=== PATIENT | female | born 1965 | race Caucasian/White ===

== ENCOUNTER → 2016-08-15 | Outpatient (CLI) | payer BC, OTHER ==
[~2016-08-15] MED LIST: AMLO-110 PO; ESCI1TAB10 PO; MECL1TAB42 PO; SYMIN/8045 INH; SYN75 PO
[2016-08-15 17:52] LABS: BASO % 0.3 %; BASO ABS # 0.03 K/uL (0-0.2); COMPLETE YES; EOS % 3.9 %; HEMATOCRIT 41.8 % (37-47); IG% 0.2 %; LYMPH % 20.6 %; LYMPH ABS # 1.81 K/uL (1.2-3.4); MEAN CELL VOLUME 87.1 fL (80-100); MEAN CORPUSCULAR HEMOGLOBIN 28.8 pg (25-34); MEAN PLATELET VOLUME 9.3 fL (7.4-10.4); MONO % 7.4 %; NEUT % 67.6 %; PLATELET COUNT 564 K/uL (130-400)
[2016-08-15 18:45] LABS: ALT/SGPT 34 U/L (12-78); BLOOD UREA NITROGEN 22 mg/dl (7-18); BUN/CREATININE RATIO 30.7 (10-20); CALCIUM 9.1 mg/dl (8.5-10.1); CARBON DIOXIDE 31 mmol/L (21-32); CHLORIDE 104 mmol/L (98-107); CHOLESTEROL 197 mg/dl (0-200); CREATININE 0.73 mg/dl (0.60-1.20); GLUCOSE 95 mg/dl (70-99); POTASSIUM 4.1 mmol/L (3.5-5.1); SODIUM 141 mmol/L (136-145); TRIGLYCERIDES 302 mg/dl (0-150); VERY LOW DENSITY LIPOPROT CALC 60 mg/dl
[2016-08-15 18:58] LABS: ALB/GLOB RATIO 1.1 (0.9-2); ALKALINE PHOSPHATASE 101 U/L (45-117); AST/SGOT 19 U/L (15-37); CHOLESTEROL/HDL RATIO 3.6; HDL CHOLESTEROL 54 mg/dl; LDL CHOLESTEROL CALCULATED 83 mg/dl
== END | disposition home or self-care (01) ==
LOC: C.LABMFLN 10:25
PROVIDERS: ATTEND Family Medicine
DX: I10 Essential (primary) hypertension (principal); E03.9 Hypothyroidism, unspecified

== ENCOUNTER 2016-11-02 11:44 | Emergency (ER) | payer BC ==
[~2016-11-02] VITALS: Ht 172.7 cm; Wt 122.0 kg
[2016-11-02 11:47] VITALS: TEMP 36.8; Ht 172.7 cm; Wt 122.0 kg
--- NOTE | 2016-11-02 12:18 | EMERGENCY ROOM VISIT NOTE ---
History Report prepared by Andrew: Eugene Poole Under the Supervision of: Dr. Haley Jo D.O. First contact with patient: 11:54 Chief Complaint: DIZZY Stated Complaint: DIZZY Nursing Triage Summary: c/o dizziness for the past 3 wks with blurried vision History of Present Illness The patient is a 51 year old female who presents to the Emergency Room with complaints of intermittent dizziness for the past three weeks. The patient has also been experiencing intermittent lightheadedness and headaches. The headaches are always frontal. The patient sometimes experiences a room-spinning sensation and sometimes feels like she is going to pass out. She is currently feeling slightly dizzy. Her headaches do not always correlate with the dizzy and lightheaded symptoms. She denies chest pain, palpitations, new shortness of breath, nausea, vomiting, changes in bowel habits, urinary symptoms, leg swelling, numbness, or tingling. The patient had similar symptoms in the past and was found to have thyroid disease, however she is now on thyroid medication. The patient is post-menopausal. The patient has a history of asthma and recently had Prednisone for an attack. She has never had problems with Prednisone. She denies history of migraines. The patient has family history of vertigo. She denies any recent travel or changes in exercise / activity. The patient denies recent changes in medication or history of medication reactions. She is on Lexapro for a history of anxiety and panic attacks. Source of History: patient Onset: three weeks ago Position: other (global) Quality: other (dizziness) Timing: intermittent Associated Symptoms: + headache, No chest pain, No SOB, No nausea, No vomiting, No melena, No hematochezia, No diarrhea, No urinary symptoms, No weakness, No numbness Note: + lightheadedness Review of Systems See HPI for pertinent positives & negatives. A total of 10 systems reviewed and were otherwise negative. Past Medical & Surgical Medical Problems: (1) Anxiety (2) Asthma (3) Hypothyroid Family History Vertigo Social History Smoking Status: Former Smoker Marital Status: Housing Status: lives with family Current/Historical Medications Scheduled Amlodipine (Norvasc), 5 MG PO QAM Budesonide/Formoterol Fumarate (Symbicort 80/4.5 Inhaler), 2 PUFFS INH BID Escitalopram Oxalate (Lexapro), 20 MG PO QAM Levothyroxine Sodium (Synthroid), 75 MCG PO QAM Scheduled PRN Meclizine Hcl (Meclizine Hcl), 25 MG PO TID PRN for Dizziness Allergies Coded Allergies: No Known Allergies (Unverified , 11/02/16) Physical Exam Vital Signs Date Time Temp Pulse Resp B/P (MAP) Pulse Ox O2 Delivery O2 Flow Rate FiO2 11/02/16 14:22 68 18 120/96 95 Room Air 11/02/16 13:10 67 18 165/91 96 Room Air 11/02/16 12:11 72 11/02/16 12:01 65 18 186/97 11/02/16 11:47 36.8 79 16 205/127 96 Physical Exam GENERAL: alert, well appearing, well nourished, no distress, non-toxic EYE EXAM: normal conjunctiva. OROPHARYNX: no exudate, no erythema, lips, buccal mucosa, and tongue normal and mucous membranes are moist NECK: supple, no nuchal rigidity, no adenopathy, non-tender LUNGS: Clear to auscultation. Normal chest wall mechanics HEART: no murmurs, S1 normal and S2 normal ABDOMEN: abdomen soft, non-tender, normo-active bowel sounds, no masses, no rebound or guarding. BACK: Back is symmetrical on inspection and there is no deformity, no midline tenderness, no CVA tenderness. SKIN: no rashes and no bruising UPPER EXTREMITIES: upper extremities are grossly normal. LOWER EXTREMITIES: No pitting edema. NEURO EXAM: Normal sensorium, cranial nerves II-XII grossly intact, normal speech, no gross weakness of arms, no gross weakness of legs. Gross sensation intact. Negative HINTS. Medical Decision & Procedures ER Provider Diagnostic Interpretation: Radiology results have been interpreted by the radiologist and reviewed by me. CT OF THE HEAD WITHOUT CONTRAST CLINICAL HISTORY: Headache and dizziness. COMPARISON STUDY: No previous studies for comparison. CT DOSE: 729.78 mGycm TECHNIQUE: Helical axial images of the head were obtained without IV contrast. Automated exposure control was utilized for the study. FINDINGS: No acute intracranial hemorrhage, midline shift or mass effect is present. Ventricular system is normal. Basilar cisterns are patent. There are no extra-axial collections. There is bilateral basal ganglia calcification. There are no findings to suggest acute dural sinus thrombosis or acute territorial infarct. There are no calvarial abnormalities. There is a tiny mucous retention cyst within the right maxillary sinus. IMPRESSION: No acute intracranial findings. Electronically signed by: Martin Bennett M.D. 11/02/2016 12:57 PM Dictated Date/Time: 11/02/2016 12:49 PM Laboratory Results 11/02/16 12:08 Red Blood Count 4.99, Mean Corpuscular Volume 87.6, Mean Corpuscular Hemoglobin 28.3, Mean Corpuscular Hemoglobin Concent 32.3, Mean Platelet Volume 9.3, Neutrophils (%) (Auto) 69.8, Lymphocytes (%) (Auto) 19.9, Monocytes (%) (Auto) 7.6, Eosinophils (%) (Auto) 2.0, Basophils (%) (Auto) 0.5, Neutrophils # (Auto) 5.86, Lymphocytes # (Auto) 1.67, Monocytes # (Auto) 0.64, Eosinophils # (Auto) 0.17, Basophils # (Auto) 0.04 11/02/16 12:08 Test 11/02/16 12:03 11/02/16 12:08 11/02/16 13:05 Bedside Glucose 81 mg/dl (70-90) White Blood Count 8.40 K/uL (4.8-10.8) Red Blood Count 4.99 M/uL (4.2-5.4) Hemoglobin 14.1 g/dL (12.0-16.0) Hematocrit 43.7 % (37-47) Mean Corpuscular Volume 87.6 fL (80-100) Mean Corpuscular Hemoglobin 28.3 pg (25-34) Mean Corpuscular Hemoglobin Concent 32.3 g/dl (32-36) Platelet Count 569 K/uL (130-400) Mean Platelet Volume 9.3 fL (7.4-10.4) Neutrophils (%) (Auto) 69.8 % Lymphocytes (%) (Auto) 19.9 % Monocytes (%) (Auto) 7.6 % Eosinophils (%) (Auto) 2.0 % Basophils (%) (Auto) 0.5 % Neutrophils # (Auto) 5.86 K/uL (1.4-6.5) Lymphocytes # (Auto) 1.67 K/uL (1.2-3.4) Monocytes # (Auto) 0.64 K/uL (0.11-0.59) Eosinophils # (Auto) 0.17 K/uL (0-0.5) Basophils # (Auto) 0.04 K/uL (0-0.2) RDW Standard Deviation 42.6 fL (36.4-46.3) RDW Coefficient of Variation 13.3 % (11.5-14.5) Immature Granulocyte % (Auto) 0.2 % Immature Granulocyte # (Auto) 0.02 K/uL (0.00-0.02) Anion Gap 11.0 mmol/L (3-11) Est Creatinine Clear Calc Drug Dose 126.8 ml/min Estimated GFR () 111.3 Estimated GFR (Non- 96.0 BUN/Creatinine Ratio 27.4 (10-20) Calcium Level 9.0 mg/dl (8.5-10.1) Magnesium Level 2.3 mg/dl (1.8-2.4) Total Bilirubin 1.1 mg/dl (0.2-1) Aspartate Amino Transf (AST/SGOT) 24 U/L (15-37) Alanine Aminotransferase (ALT/SGPT) 31 U/L (12-78) Alkaline Phosphatase 73 U/L (45-117) Troponin I < 0.015 ng/ml (0-0.045) Total Protein 7.2 gm/dl (6.4-8.2) Albumin 3.9 gm/dl (3.4-5.0) Globulin 3.3 gm/dl (2.5-4.0) Albumin/Globulin Ratio 1.2 (0.9-2) Thyroid Stimulating Hormone (TSH) 1.550 uIu/ml (0.300-4.500) Chemistry Specimen Hemolysis Urine Color YELLOW Urine Appearance CLEAR (CLEAR) Urine pH 5.0 (4.5-7.5) Urine Specific [place] 1.015 (1.000-1.030) Urine Protein NEG (NEG) Urine Glucose (UA) NEG (NEG) Urine Ketones 1+ (NEG) Urine Occult Blood NEG (NEG) Urine Nitrite NEG (NEG) Urine Bilirubin NEG (NEG) Urine Urobilinogen NEG (NEG) Urine Leukocyte Esterase NEG (NEG) Laboratory results per my review. Medications Administered Medications (Trade) Dose Ordered Sig/Kervin Route Start Time Stop Time Status Last Admin Dose Admin Meclizine HCl (Antivert Tab) 25 mg NOW STAT PO 11/02/16 12:24 11/02/16 12:26 DC 11/02/16 12:24 25 MG Meclizine HCl (Antivert Tab) 25 mg NOW STAT PO 11/02/16 14:08 11/02/16 14:09 DC 11/02/16 14:21 25 MG ECG Indication: other (dizziness) Rate (beats per minute): 73 Rhythm: sinus rhythm Findings: no acute ischemic change, no ectopy, other (normal axis, normal intervals) ED Course 1207: The patient was evaluated in room C3. A complete history and physical exam was performed. 1224: Antivert 25 mg PO. 1340: The patient is feeling better. I had an extensive bedside discussion about dizziness and follow up with her primary doctor. 1408: Antivert 25 mg PO. Medical Decision Differential diagnosis: Etiologies such as benign positional vertigo, dehydration, hypovolemia, anemia, tumor, infection, hypoglycemia, electrolyte abnormalities, cardiac sources, intracerebral event, toxicologic, neurologic, as well as others were entertained. Blood pressure screening: Patient was found to have an elevated blood pressure and was referred to their primary doctor for recheck and further treatment. Medication Reconciliation: I attest that I have personally reviewed the patient' s current medication list. Patient well-appearing here despite complaints of improvement with meclizine. CT reassuring, and bedside physical exam reassuring. Feel less likely central cause of vertigo. No recent trauma, doubt stroke, doubt occult infection, no dysrhythmias noted on telemetry, doubt cardiac etiology. Discussed with patient possible differential diagnosis, possible peripheral vertigo, discussed close follow-up with family doctor, use of meclizine is not patient, symptoms to watch and return for, she verbalized understanding was agreeable with plan. Doubt bacteremia/sepsis, doubt vascular etiology. Patient noted to be mildly dehydrated, IV fluids were given, patient and related with a steady gait and was tolerating by mouth prior to discharge. Mild hypertension noted, doubt hypertensive urgency/emergency, discussed with patient close follow-up and recheck of blood pressure as an outpatient. Impression Primary Impression: Dizziness Additional Impression: Hypertension Scribe Attestation The scribe's documentation has been prepared under my direction and personally reviewed by me in its entirety. I confirm that the note above accurately reflects all work, treatment, procedures, and medical decision making performed by me. Departure Information Dispostion Home / Self-Care Prescriptions Meclizine Hcl (MECLIZINE HCL) 25 Mg Tab 25 MG PO TID Y for Dizziness, #20 TAB Prov: Haley Jo, DO 11/02/16 Referrals Amy Mariee M.D. (PCP) Forms HOME CARE DOCUMENTATION FORM, IMPORTANT VISIT INFORMATION Patient Instructions My [facility] Additional Instructions You may use the dizzy medication as prescribed. Please continue to eat and drink normally. Please continue other regular medications. Please: Follow up with her family doctor and discuss with them your symptoms over the last several weeks, as well as evaluation here today. Discussed symptoms also recheck your blood pressure is slightly elevated today and needs further evaluation. If you develop recurrent or worsening episodes of dizziness, develop headaches, vomiting, vision changes, chest pain or trouble breathing, numbness or tingling, fevers, or any other new or concerning symptoms, please return the emergency room. Problem Qualifiers Additional Impression: Hypertension Hypertension type: essential hypertension Qualified Codes: I10 - Essential ( primary) hypertension
[2016-11-02] MEDS ORDERED: MECLIZINE HCL 25 MG TAB PO STA ×2 (12:24→14:08)
[2016-11-02 12:45] LABS: BASO % 0.5 %; BASO ABS # 0.04 K/uL (0-0.2); COMPLETE YES; HEMATOCRIT 43.7 % (37-47); IG% 0.2 %; LYMPH % 19.9 %; LYMPH ABS # 1.67 K/uL (1.2-3.4); MEAN CELL VOLUME 87.6 fL (80-100); MEAN CORPUSCULAR HEMOGLOBIN 28.3 pg (25-34); MEAN CORPUSCULAR HGB CONC 32.3 g/dl (32-36); MEAN PLATELET VOLUME 9.3 fL (7.4-10.4); MONO % 7.6 %; NEUT % 69.8 %; PLATELET COUNT 569 K/uL (130-400); RED BLOOD COUNT 4.99 M/uL (4.2-5.4)
--- NOTE | 2016-11-02 12:58 | DIAGNOSTIC IMAGING REPORT ---
CT OF THE HEAD WITHOUT CONTRAST CLINICAL HISTORY: Headache and dizziness. COMPARISON STUDY: No previous studies for comparison. CT DOSE: 729.78 mGycm TECHNIQUE: Helical axial images of the head were obtained without IV contrast. Automated exposure control was utilized for the study. FINDINGS: No acute intracranial hemorrhage, midline shift or mass effect is present. Ventricular system is normal. Basilar cisterns are patent. There are no extra-axial collections. There is bilateral basal ganglia calcification. There are no findings to suggest acute dural sinus thrombosis or acute territorial infarct. There are no calvarial abnormalities. There is a tiny mucous retention cyst within the right maxillary sinus. IMPRESSION: No acute intracranial findings. Electronically signed by: Martin Bennett M.D. 11/02/2016 12:57 PM Dictated Date/Time: 11/02/2016 12:49 PM
[2016-11-02] MEDS ORDERED: AMLO-110 PO (13:00)
[2016-11-02] MEDS ORDERED: SYN75 PO (13:00)
[2016-11-02] MEDS ORDERED: SYMIN/8045 INH (13:00)
[2016-11-02] MEDS ORDERED: ESCI1TAB10 PO (13:00)
[2016-11-02 13:12] LABS: ALB/GLOB RATIO 1.2 (0.9-2); ALT/SGPT 31 U/L (12-78); AST/SGOT 24 U/L (15-37); BLOOD UREA NITROGEN 20 mg/dl (7-18); BUN/CREATININE RATIO 27.4 (10-20); CARBON DIOXIDE 24 mmol/L (21-32); CHLORIDE 107 mmol/L (98-107); CREATININE 0.73 mg/dl (0.60-1.20); GLUCOSE 86 mg/dl (70-99); MAGNESIUM 2.3 mg/dl (1.8-2.4); POTASSIUM 4.2 mmol/L (3.5-5.1); SODIUM 142 mmol/L (136-145)
[2016-11-02 13:18] LABS: ALKALINE PHOSPHATASE 73 U/L (45-117)
[2016-11-02 14:19] LABS: URINE APPEARANCE CLEAR (CLEAR); URINE BILIRUBIN NEG (NEG); URINE COLOR YELLOW; URINE NITRITE NEG (NEG); URINE SPECIFIC GRAVITY 1.015 (1.000-1.030); UROBILINOGEN NEG (NEG); ZZUR CULT IF INDIC CLEAN CATCH NO
[2016-11-02 14:20] LABS: MANUAL MICROSCOPIC REQUIRED? NO; REVIEW REQ? NO
[2016-11-02 14:22] VITALS: BP 120/96; PULSE 68; O2SAT 95
[2016-11-02] MEDS ORDERED: MECL1TAB42 PO (14:39)
== END 2016-11-02 14:43 | disposition home or self-care (01) ==
LOC: C.EDB 11:46 → C.EDC 14:43
DX: R42 Dizziness and giddiness (principal); I10 Essential (primary) hypertension; J45.909 Unspecified asthma, uncomplicated; F41.9 Anxiety disorder, unspecified; E03.9 Hypothyroidism, unspecified; Z87.891 Personal history of nicotine dependence

== ENCOUNTER → 2017-01-10 | Outpatient (CLI) | payer BC ==
[~2017-01-10] MED LIST changes: +OPTIRAY 320 IV PRN
--- NOTE | 2017-01-10 17:02 | DIAGNOSTIC IMAGING REPORT ---
(CHEST FOR PE) ANGIO WITH CT DOSE: 678.14 mGy.cm HISTORY: Chest pain. Dyspnea. TECHNIQUE: Multiaxial CT images of the chest were performed following the intravenous administration of contrast to evaluate the pulmonary arteries. Maximal intensity projection images were also obtained. A dose lowering technique was utilized adhering to the principles of ALARA. COMPARISON STUDY: 03/13/2013 FINDINGS: There is a normal caliber thoracic aorta with no evidence for dissection. There is no evidence for pulmonary embolus. No pleural effusions. No pneumothorax. The liver and spleen are unremarkable. No mediastinal or hilar lymphadenopathy. The central airways are patent. The lungs are clear. IMPRESSION: No evidence for pulmonary embolus. The lungs are clear. The above report was generated using voice recognition software. It may contain grammatical, syntax or spelling errors. Electronically signed by: Anthony Díaz M.D. 01/10/2017 5:01 PM Dictated Date/Time: 01/10/2017 4:57 PM
== END | disposition home or self-care (01) ==
LOC: C.CTS 16:40
PROVIDERS: ATTEND Family Medicine
DX: R07.81 Pleurodynia (principal)

== ENCOUNTER 2017-07-17 15:38 | Observation (INO) | payer BC ==
[~2017-07-17] VITALS: Ht 172.7 cm; Wt 127.4 kg
[~2017-07-17 15:38] MED LIST changes: -MECL1TAB42 PO; -OPTIRAY 320 IV PRN
[2017-07-17] MEDS ORDERED: DILTIAZEM BOLUS / DRIP IV STA (16:01)
[2017-07-17] MEDS ORDERED: DILTIAZEM BOLUS FROM BAG IV ONE (16:15)
[2017-07-17] MEDS ORDERED: DILTIAZEM HCL INJ 125 MG in DEXTROSE 5% 100ML IV PRN (16:15)
--- NOTE | 2017-07-17 16:37 | DIAGNOSTIC IMAGING REPORT ---
CHEST ONE VIEW PORTABLE CLINICAL HISTORY: Evaluate Fever/Sepsis dyspnea COMPARISON STUDY: No previous studies for comparison. FINDINGS: The bones soft tissues and hemidiaphragms are normal. The cardiomediastinal silhouette is normal. The lungs are clear. The pulmonary vasculature is normal. IMPRESSION: Negative chest. The above report was generated using voice recognition software. It may contain grammatical, syntax or spelling errors. Electronically signed by: Anthony Díaz M.D. 07/17/2017 4:36 PM Dictated Date/Time: 07/17/2017 4:36 PM
[2017-07-17] MEDS ORDERED: SODIUM CHLORIDE 0.9% 1000ML 1,000 ML IV STA (16:38)
[2017-07-17 16:40] LABS: BASO % 0.3 %; BASO ABS # 0.04 K/uL (0-0.2); EOS ABS # 0.13 K/uL (0-0.5); HEMATOCRIT 45.2 % (37-47); HEMOGLOBIN 15.4 g/dL (12.0-16.0); IG# 0.05 K/uL (0.00-0.02); LYMPH % 17.2 %; LYMPH ABS # 2.21 K/uL (1.2-3.4); MEAN CELL VOLUME 86.3 fL (80-100); MEAN CORPUSCULAR HEMOGLOBIN 29.4 pg (25-34); MEAN CORPUSCULAR HGB CONC 34.1 g/dl (32-36); MEAN PLATELET VOLUME 9.1 fL (7.4-10.4); MONO % 8.7 %; MONO ABS # 1.11 K/uL (0.11-0.59); NEUT % 72.4 %; NEUT ABS # 9.29 K/uL (1.4-6.5); PLATELET COUNT 640 K/uL (130-400); RED CELL DISTRIBUTION WIDTH CV 12.9 % (11.5-14.5); RED CELL DISTRIBUTION WIDTH SD 40.9 fL (36.4-46.3); WHITE BLOOD COUNT 12.83 K/uL (4.8-10.8)
[2017-07-17] MEDS ORDERED: AMLO10TA2 PO (16:47)
[2017-07-17] MEDS ORDERED: MULT-506 PO (16:47)
[2017-07-17] MEDS ORDERED: BUSP15TA70 PO (16:47)
[2017-07-17 17:19] LABS: ALBUMIN 3.9 gm/dl (3.4-5.0); ALT/SGPT 31 U/L (12-78); AST/SGOT 15 U/L (15-37); BLOOD UREA NITROGEN 19 mg/dl (7-18); CALCIUM 8.9 mg/dl (8.5-10.1); CARBON DIOXIDE 23 mmol/L (21-32); GLUCOSE 100 mg/dl (70-99); POTASSIUM 3.8 mmol/L (3.5-5.1); SODIUM 139 mmol/L (136-145)
[2017-07-17 17:30] LABS: ALKALINE PHOSPHATASE 75 U/L (45-117); CKMB 1.9 ng/ml (0.5-3.6); TOTAL PROTEIN 7.1 gm/dl (6.4-8.2)
--- NOTE | 2017-07-17 17:51 | EMERGENCY ROOM VISIT NOTE ---
History Report prepared by Andrew: Miladis Fontenot Under the Supervision of: Dr. Aren Johnson D.O. First contact with patient: 15:56 Chief Complaint: IRREGULAR HEARTBEAT Stated Complaint: AFIB- PHYSICIAN REF History of Present Illness The patient is a 52 year old female who presents to the Emergency Room with complaints of persistent SOB starting 1 week ago. The patient was sent to the ED from her PCP's office after she was found to be in atrial fibrillation. She does not have a history of atrial fibrillation. She has been feeling SOB, shaky , and dizzy for the past week. She has been easily fatigued. She denies any fever or cough. She has a history of hypothyroidism, anxiety, and hypertension. She does have a family history of atrial fibrillation. Source of History: patient Onset: 1 week ago Position: other (global) Quality: other (SOB) Timing: other (persistent) Associated Symptoms: + fatigue, No fevers, No cough Note: Pt reports shakiness, dizziness. Review of Systems See HPI for pertinent positives & negatives. A total of 10 systems reviewed and were otherwise negative. Past Medical & Surgical Medical Problems: (1) Anxiety (2) Asthma (3) Hypothyroid Family History Vertigo Social History Smoking Status: Former Smoker Marital Status: Housing Status: lives with family Current/Historical Medications Scheduled Amlodipine Besylate (Norvasc), 10 MG PO DAILY Buspirone Hcl (Buspar), 15 MG PO BID Escitalopram Oxalate (Lexapro), 20 MG PO QAM Levothyroxine Sodium (Synthroid), 75 MCG PO QAM Multivitamin (Multivitamin), 1 TAB PO DAILY Scheduled PRN Budesonide/Formoterol Fumarate (Symbicort 80/4.5 Inhaler), 2 PUFFS INH BID PRN for SOB/Wheezing Allergies Coded Allergies: Amoxicillin (Verified Allergy, Severe, Full body rash, 07/17/17) Dicyclomine (Verified Allergy, Unknown, Unknown, 07/17/17) Physical Exam Vital Signs Date Time Temp Pulse Resp B/P (MAP) Pulse Ox O2 Delivery O2 Flow Rate FiO2 07/17/17 17:30 73 16 134/89 98 Room Air 07/17/17 16:56 77 18 140/88 98 07/17/17 16:44 85 07/17/17 16:27 98 Room Air 07/17/17 16:26 99 20 123/94 98 Room Air 07/17/17 16:02 96 Room Air 07/17/17 15:51 36.3 137 20 173/125 97 Room Air Physical Exam CONSTITUTIONAL/VITAL SIGNS: Reviewed / noted above. GENERAL: Non-toxic in appearance. INTEGUMENTARY: Warm, dry, and [place]. HEAD: Normocephalic. EYES: without scleral icterus or trauma. ENT/OROPHARYNX: clear and moist. LYMPHADENOPATHY/NECK: Is supple without lymphadenopathy or meningismus. RESPIRATORY: Lungs clear and equal. CARDIOVASCULAR: Rapid and irregular heart rate. GI/ABDOMEN: Soft and nontender. No organomegaly or pulsatile mass. No rebound or guarding. Normal bowel sounds. EXTREMITIES: Warm and well perfused. BACK: No CVA tenderness. NEUROLOGICAL: Intact without focal deficits. PSYCHIATRIC: normal affect. MUSCULOSKELETAL: Normally developed with good muscle tone. Medical Decision & Procedures ER Provider Diagnostic Interpretation: X ray results and stated below per my interpretation and radiology interpretation. CHEST ONE VIEW PORTABLE CLINICAL HISTORY: Evaluate Fever/Sepsis dyspnea COMPARISON STUDY: No previous studies for comparison. FINDINGS: The bones soft tissues and hemidiaphragms are normal. The cardiomediastinal silhouette is normal. The lungs are clear. The pulmonary vasculature is normal. IMPRESSION: Negative chest. The above report was generated using voice recognition software. It may contain grammatical, syntax or spelling errors. Electronically signed by: Anthony Díaz M.D. 07/17/2017 4:36 PM Dictated Date/Time: 07/17/2017 4:36 PM Laboratory Results 07/17/17 16:08 Red Blood Count 5.24, Mean Corpuscular Volume 86.3, Mean Corpuscular Hemoglobin 29.4, Mean Corpuscular Hemoglobin Concent 34.1, Mean Platelet Volume 9.1, Neutrophils (%) (Auto) 72.4, Lymphocytes (%) (Auto) 17.2, Monocytes (%) (Auto) 8.7, Eosinophils (%) (Auto) 1.0, Basophils (%) (Auto) 0.3, Neutrophils # (Auto) 9.29, Lymphocytes # (Auto) 2.21, Monocytes # (Auto) 1.11, Eosinophils # (Auto) 0.13, Basophils # (Auto) 0.04 07/17/17 16:08 Test 07/17/17 16:08 White Blood Count 12.83 K/uL (4.8-10.8) Red Blood Count 5.24 M/uL (4.2-5.4) Hemoglobin 15.4 g/dL (12.0-16.0) Hematocrit 45.2 % (37-47) Mean Corpuscular Volume 86.3 fL (80-100) Mean Corpuscular Hemoglobin 29.4 pg (25-34) Mean Corpuscular Hemoglobin Concent 34.1 g/dl (32-36) Platelet Count 640 K/uL (130-400) Mean Platelet Volume 9.1 fL (7.4-10.4) Neutrophils (%) (Auto) 72.4 % Lymphocytes (%) (Auto) 17.2 % Monocytes (%) (Auto) 8.7 % Eosinophils (%) (Auto) 1.0 % Basophils (%) (Auto) 0.3 % Neutrophils # (Auto) 9.29 K/uL (1.4-6.5) Lymphocytes # (Auto) 2.21 K/uL (1.2-3.4) Monocytes # (Auto) 1.11 K/uL (0.11-0.59) Eosinophils # (Auto) 0.13 K/uL (0-0.5) Basophils # (Auto) 0.04 K/uL (0-0.2) RDW Standard Deviation 40.9 fL (36.4-46.3) RDW Coefficient of Variation 12.9 % (11.5-14.5) Immature Granulocyte % (Auto) 0.4 % Immature Granulocyte # (Auto) 0.05 K/uL (0.00-0.02) Prothrombin Time 10.6 SECONDS (9.0-12.0) Prothromb Time International Ratio 1.0 (0.9-1.1) Activated Partial Thromboplast Time 24.0 SECONDS (21.0-31.0) Partial Thromboplastin Ratio 0.9 Anion Gap 10.0 mmol/L (3-11) Est Creatinine Clear Calc Drug Dose 116.8 ml/min Estimated GFR () 98.9 Estimated GFR (Non- 85.4 BUN/Creatinine Ratio 23.5 (10-20) Calcium Level 8.9 mg/dl (8.5-10.1) Total Bilirubin 1.1 mg/dl (0.2-1) Direct Bilirubin 0.2 mg/dl (0-0.2) Aspartate Amino Transf (AST/SGOT) 15 U/L (15-37) Alanine Aminotransferase (ALT/SGPT) 31 U/L (12-78) Alkaline Phosphatase 75 U/L (45-117) Total Creatine Kinase 71 U/L (26-192) Creatine Kinase MB 1.9 ng/ml (0.5-3.6) Creatine Kinase MB Ratio 2.7 (0-3.0) Troponin I < 0.015 ng/ml (0-0.045) Total Protein 7.1 gm/dl (6.4-8.2) Albumin 3.9 gm/dl (3.4-5.0) Thyroid Stimulating Hormone (TSH) 2.480 uIu/ml (0.300-4.500) Laboratory results as stated above per my review. Medications Administered Medications (Trade) Dose Ordered Sig/Kervin Route Start Time Stop Time Status Last Admin Dose Admin Diltiazem HCl (Cardizem Bolus From Bag) 30 mg ONE ONCE IV 07/17/17 16:15 07/17/17 16:16 DC 07/17/17 16:19 30 MG Diltiazem HCl 125 mg/Dextrose 125 ml @ 0 mls/hr Q0M PRN IV 07/17/17 16:15 08/16/17 16:14 07/17/17 16:20 10 MLS/HR Sodium Chloride 1,000 ml @ 999 mls/hr Q1H1M STAT IV 07/17/17 16:38 07/17/17 17:38 DC 07/17/17 16:10 999 MLS/HR ECG Per My Interpretation Indication: SOB/dyspnea Rate (beats per minute): 147 Rhythm: atrial fibrillation Findings: other (no ST elevation, no ST depression) ED Course 1557: Previous medical records were reviewed. The patient was evaluated in room C11B. A complete history and physical examination was performed. 1615: Diltiazem HCl 125 mg/Dextrose IV, Diltiazem HCl 30 mg IV. 1638: NSS 1000 ml @ 999 mls/hr IV. 1642: Heparin Sodium/Dextrose IV. 1720: Repeat EKG per my interpretation shows NSR, rate 73, no ST elevation, no ST depression. 1733: I discussed the patient's case with Dr. Guerrero Powell [facility] hospitalist. He will evaluate the patient for further management. Medical Decision the differential was considered includes acute myocardial infarction, acute coronary syndrome, myocarditis, pericarditis, pericardial effusions /tamponade, esophageal perforation, thoracic aortic dissection, pulmonary embolism, pneumonia, pneumothorax, pancreatitis, shingles, acute cholecystitis, perforated abdominal viscus. This is a 52-year-old female who presents to the ED with a chief complaint of irregular heartbeat. The patient was sent from the PCPs office with atrial fibrillation. The patient states that she has been having symptoms for the past 6 days. The patient states that she has been short of breath and feeling tired that worsened with exertion. She has a history of hypertension and thyroid. The patient reported some dizziness as well. Her vital signs here revealed some hypertension as well as a tachycardia. Initial EKG revealed A. fib with RVR at a rate of 137. CBC is unremarkable, troponin was negative, chest x-ray did not show acute disease. The patient was started on Cardizem 30 mg IV followed by drip at 10 mg/h. After a period of time in the emergency department, she spontaneously converted into a normal sinus rhythm. She was started on IV heparin drip. I spoke with the hospitalist, who will see the patient for further inpatient evaluation and care. Medication Reconcilliation Current Medication List: was personally reviewed by me Blood Pressure Screening Patient's blood pressure: Elevated blood pressure Referred to hospitalist. Consults Time Called: 1733 Consulting Physician: Dr. Guerrero Powell [facility] Returned Call: [phone] I discussed the patient's case with him. He will evaluate the patient for further management. Impression Primary Impression: Atrial fibrillation with RVR Critical Care I have personally spent 30 minutes of critical care time in the direct management of this patient. This includes bedside care, interpretation of diagnostic studies, and testing, discussion with consultants, patient, and family members, and other required patient management activities. This 30 minutes is in excess of all separately billable procedures. Scribe Attestation The scribe's documentation has been prepared under my direction and personally reviewed by me in its entirety. I confirm that the note above accurately reflects all work, treatment, procedures, and medical decision making performed by me. Departure Information Dispostion Being Evaluated By Hospitalist Referrals Kolonich, Amy, M.D. (PCP) Patient Instructions My [facility]
[2017-07-17] MEDS ORDERED: HEPARIN SOD (PORCINE) 1000 UNIT/ML 10 ML VIAL ONE (18:40)
[2017-07-17] MEDS ORDERED: HEPARIN SOD 5000 UNIT/0.5 ML CARP ONE (18:41)
[2017-07-17] MEDS ORDERED: HEPARIN IV BOLUS 7,000 UNIT in SYRINGE 0 ML IV ONE (18:45)
[2017-07-17] MEDS: HEPARIN 25,000 UNIT/500ML D5W 500 ML IV PRN ×2 (18:50→23:14)
[2017-07-17] MEDS ORDERED: LORA0.5T12 PO (18:55)
[2017-07-17] MEDS ORDERED: ACETAMINOPHEN 325 MG TAB PO PRN (19:00)
[2017-07-17] MEDS ORDERED: ALUMINUM/MAGNESIUM/SIMETH (MAALOX MAX) 30 ML UDC PO PRN (19:00)
[2017-07-17] MEDS ORDERED: ONDANSETRON INJ 2 MG/ML 2 ML VIAL IV PRN (19:00)
[2017-07-17] MEDS ORDERED: LORAZEPAM 0.5 MG TAB PO PRN (19:00)
[2017-07-17] MEDS ORDERED: MAGNESIUM HYDROXIDE SUSP 30 ML UDC PO PRN (19:00)
[2017-07-17] MEDS ORDERED: POLYETHYLENE (MIRALAX) 17 GM PACK PO PRN (19:00)
--- NOTE | 2017-07-17 19:19 | History and Physical ---
History & Physical Date & Time of Service: Jul 17, 2017 at 19:04 Chief Complaint: Afib- Physician Ref Primary Care Physician: Amy Mariee M.D. History of Present Illness Source: patient, spouse, clinic records, hospital records This is a 52 y/o female with a history of HTN, hypothyroidism, anxiety/ depression, mild intermittent asthma, and BPPV who presented to the ED on 07/17 with fatigue, lightheadedness and shortness of breath x 1 week. The patient states she felt her heart racing about 1 week ago. She does have a history of anxiety and notes also feeling anxious that day, so she believed this may have been related to an anxiety attack. Over the weekend, she felt much worse with increased fatigue, some shortness of breath and lightheadedness. She could tell that something was not right, so she went to her PCP. She was found to be in new onset of a-fib with RVR and sent to the ED for evaluation. The patient received diltiazem 30 mg bolus and drip and converted back to NSR. She reports now feeling much better. The patient denies fevers, chills, sweats, chest pain , claudication, cough, wheezing, nausea, vomiting, abdominal pain, dysuria, hematuria, urinary retention, paralysis, focal motor weakness, numbness and tingling. Past Medical/Surgical History Medical Problems: (1) Anxiety Status: Chronic (2) Asthma Status: Chronic (3) Hypothyroid Status: Chronic HTN Depression BPPV Family History Asthma Hypertension Prostate cancer Vertigo Social History Smoking Status: Former Smoker Smokeless Tobacco Use: No Alcohol Use: socially Drug Use: none Marital Status: Housing status: lives with significant other Allergies Coded Allergies: Amoxicillin (Verified Allergy, Severe, Full body rash, 07/17/17) Dicyclomine (Verified Allergy, Unknown, Unknown, 07/17/17) Home Medications Scheduled Amlodipine Besylate (Norvasc), 10 MG PO DAILY Buspirone Hcl (Buspar), 15 MG PO BID Escitalopram Oxalate (Lexapro), 20 MG PO QAM Levothyroxine Sodium (Synthroid), 75 MCG PO QAM Multivitamin (Multivitamin), 1 TAB PO DAILY Scheduled PRN Budesonide/Formoterol Fumarate (Symbicort 80/4.5 Inhaler), 2 PUFFS INH BID PRN for SOB/Wheezing Lorazepam (Lorazepam), 1 TAB PO BID PRN for Anxiety Review of Systems Constitutional: +Fatigue, lightheaded. No fever, No chills, No sweats Eyes: No worsening of vision, No eye pain, No diplopia ENT: No hearing loss, No nasal symptoms, No trouble swallowing Respiratory: +Intermittent SOB. No cough, No wheezing Cardiovascular: +Palpitations. No chest pain, No claudication Abdomen: No pain, No nausea, No vomiting Musculoskeletal: No joint pain, No muscle pain, No swelling Genitourinary - Female: No dysuria, No urinary retention, No hematuria Neurologic: No paralysis, No weakness, No numbness/tingling Integumentary: No rash, No itch, No color change Physical Exam Vital Signs Date Time Temp Pulse Resp B/P (MAP) Pulse Ox O2 Delivery O2 Flow Rate FiO2 07/17/17 17:30 73 16 134/89 98 Room Air 07/17/17 16:56 77 18 140/88 98 07/17/17 16:44 85 07/17/17 16:27 98 Room Air 07/17/17 16:26 99 20 123/94 98 Room Air 07/17/17 16:02 96 Room Air 07/17/17 15:51 36.3 137 20 173/125 97 Room Air General appearance: +Morbidly obese. Well-developed, well-nourished, no apparent distress Head: Normocephalic, atraumatic Eyes: Normal inspection, PERRL, EOMI ENT: Normal ENT inspection, hearing grossly normal, pharynx normal Neck: Supple, no JVD, trachea midline Respiratory/Chest: Lungs clear to auscultation, normal breath sounds, no respiratory distress Cardiovascular: Regular rate & rhythm, no gallop, no murmur Abdomen/GI: Normal bowel sounds, non-tender, soft Extremities/Musculoskeletal: Normal inspection, no calf tenderness, no pedal edema Neurological/Psych: Alert, normal mood/affect, oriented x 3 Skin: Normal color, warm/dry, no rash Diagnostics Laboratory Results Results Past 24 Hours Test 07/17/17 16:08 Range/Units White Blood Count 12.83 4.8-10.8 K/uL Red Blood Count 5.24 4.2-5.4 M/uL Hemoglobin 15.4 12.0-16.0 g/dL Hematocrit 45.2 37-47 % Mean Corpuscular Volume 86.3 80-100 fL Mean Corpuscular Hemoglobin 29.4 25-34 pg Mean Corpuscular Hemoglobin Concent 34.1 32-36 g/dl Platelet Count 640 130-400 K/uL Mean Platelet Volume 9.1 7.4-10.4 fL Neutrophils (%) (Auto) 72.4 % Lymphocytes (%) (Auto) 17.2 % Monocytes (%) (Auto) 8.7 % Eosinophils (%) (Auto) 1.0 % Basophils (%) (Auto) 0.3 % Neutrophils # (Auto) 9.29 1.4-6.5 K/uL Lymphocytes # (Auto) 2.21 1.2-3.4 K/uL Monocytes # (Auto) 1.11 0.11-0.59 K/uL Eosinophils # (Auto) 0.13 0-0.5 K/uL Basophils # (Auto) 0.04 0-0.2 K/uL RDW Standard Deviation 40.9 36.4-46.3 fL RDW Coefficient of Variation 12.9 11.5-14.5 % Immature Granulocyte % (Auto) 0.4 % Immature Granulocyte # (Auto) 0.05 0.00-0.02 K/uL Prothrombin Time 10.6 9.0-12.0 SECONDS Prothromb Time International Ratio 1.0 0.9-1.1 Activated Partial Thromboplast Time 24.0 21.0-31.0 SECONDS Partial Thromboplastin Ratio 0.9 Sodium Level 139 136-145 mmol/L Potassium Level 3.8 3.5-5.1 mmol/L Chloride Level 106 98-107 mmol/L Carbon Dioxide Level 23 21-32 mmol/L Anion Gap 10.0 3-11 mmol/L Blood Urea Nitrogen 19 7-18 mg/dl Creatinine 0.80 0.60-1.20 mg/dl Est Creatinine Clear Calc Drug Dose 116.8 ml/min Estimated GFR () 98.9 Estimated GFR (Non- 85.4 BUN/Creatinine Ratio 23.5 10-20 Random Glucose 100 70-99 mg/dl Calcium Level 8.9 8.5-10.1 mg/dl Total Bilirubin 1.1 0.2-1 mg/dl Direct Bilirubin 0.2 0-0.2 mg/dl Aspartate Amino Transf (AST/SGOT) 15 15-37 U/L Alanine Aminotransferase (ALT/SGPT) 31 12-78 U/L Alkaline Phosphatase 75 45-117 U/L Total Creatine Kinase 71 26-192 U/L Creatine Kinase MB 1.9 0.5-3.6 ng/ml Creatine Kinase MB Ratio 2.7 0-3.0 Troponin I < 0.015 0-0.045 ng/ml Total Protein 7.1 6.4-8.2 gm/dl Albumin 3.9 3.4-5.0 gm/dl Thyroid Stimulating Hormone (TSH) 2.480 0.300-4.500 uIu/ml Diagnostic Radiology Reviewed the following studies and agree with interpretation as follows: CHEST ONE VIEW PORTABLE CLINICAL HISTORY: Evaluate Fever/Sepsis dyspnea COMPARISON STUDY: No previous studies for comparison. FINDINGS: The bones soft tissues and hemidiaphragms are normal. The cardiomediastinal silhouette is normal. The lungs are clear. The pulmonary vasculature is normal. IMPRESSION: Negative chest. EKG Reviewed EKG and agree with interpretation as follows: Initial EK bpm, atrial fibrillation with RVR 2nd EK bpm, NSR Impression Assessment and Plan 52 y/o female with a history of HTN, hypothyroidism, anxiety/depression, mild intermittent asthma, and BPPV who presented to the ED on 07/17 with fatigue, lightheadedness and shortness of breath x 1 week. HR 137 on arrival, now in mid 70s. CXR no acute disease. EKG initially showing a-fib with RVR, second EKG with NSR. Pt had been given diltiazem 30 mg bolus, then placed on diltiazem drip and a heparin drip. She converted back to NSR and is now feeling much better. WBC 12.83. Troponin negative. TSH WNL. New onset a-fib with RVR--currently in NSR -Admit to telemetry for observation -Consult cardiology, appreciate recs -Continue heparin drip for now. [id number] score of 2, will need anticoagulation. Will leave to day team to decide which agent/see what is affordable -Check echocardiogram for thrombus -Trend cardiac enzymes q8h x 3. First set negative -Check magnesium. Potassium 3.8 -EKG q am and prn chest pain Leukocytosis--put on prednisone taper as outpatient last week for recent URI HTN--stable -Continue Norvasc 10 mg PO qd Hypothyroidism -TSH WNL -Continue Synthroid 75 mcg PO qd Anxiety/depression -Continue Lexapro 20 mg PO qd, BuSpar 15 mg PO BID, and Ativan 0.5 mg PO BID prn anxiety Mild intermittent asthma--stable, no exacerbation -Per pt, Symbicort only prn SOB/wheezing DVT prophylaxis -Heparin drip -CHINTAN morris and SCDs Code Status -Level I, FULL RESUSCITATION STATUS I personally interviewed and examined the patient. I agree with history of present illness and physical exam mentioned above, I also performed my own history taking and examination. Past medical history and review of system has been obtained by myself I reviewed all pertinent labs and studies Reviewed current medications I discussed and formulated of the assessment and plan mentioned above. Please refer to the Summary mentioned below. 52 years old female with past medical history of anxiety, hypothyroidism and hypertension presented to the ED with new onset A. fib with RVR. Patient converted to sinus rhythm in ED. Explained to patient risk and benefits of anticoagulation, she is in favor of starting anticoagulation. On the footnote patient is morbidly obese, discussed with patient having sleep study as an outpatient. Patient will be admitted for 2D echo General Appearance: not in acute distress Eyes: normal Sclerae, extraocular muscle intact ENT: hearing grossly normal Neck: supple Respiratory/Chest: normal air entry bilateral ,no respiratory distress, no accessory muscle use Cardiovascular: regular rate, rhythm, no murmur Abdomen: non tender, soft, no masses Extremities: no edema Neurologic/Psychiatric: Awake alert oriented times place and person moves all extremities sensation intact cranial nerves II-12 appear to be intact Skin: normal color, warm/dry, no rash Jacklyn Powell MD, [facility] Level of Care Telemetry Resuscitation Status FULL RESUSCITATION VTE Prophylaxis VTE Risk Assessment Done? Y/N: Yes Risk Level: Moderate Given or contraindicated: Other Anticoagulation (heparin drip), T.E.D. Stockings, SCD's
[2017-07-17 20:03] VITALS: BP_SYST 129; BP_SYST 157; BP_DIAS 107; BP_DIAS 90; PULSE 103; TEMP 36.9; O2SAT 96; Ht 172.7 cm; Wt 127.4 kg
[2017-07-17] MEDS ORDERED: BusPIRone 15 MG TAB PO SCH (21:00)
[2017-07-17] MEDS ORDERED: IV FLUIDS COMPLETED PRN (21:30)
[2017-07-17 22:49] LABS: CHOLESTEROL 136 mg/dl (0-200); LDL CHOLESTEROL CALCULATED 70 mg/dl
[2017-07-18 00:26] VITALS: BP 114/80; PULSE 78; TEMP 36.4; O2SAT 95
[2017-07-18 01:40] LABS: CKMB 1.4 ng/ml (0.5-3.6)
[2017-07-18 01:44] LABS: PTT PATIENT 91.2 SECONDS (21.0-31.0)
[2017-07-18] MEDS: HEPARIN 25,000 UNIT/500ML D5W 500 ML IV PRN (02:16)
[2017-07-18 04:29] VITALS: BP 137/84; PULSE 74; TEMP 36.5; O2SAT 96
[2017-07-18] MEDS ORDERED: LEVOTHYROXINE 75 MCG TAB PO SCH (06:00)
[2017-07-18] MEDS ORDERED: PERFLUTREN LIPID MICROSPHERE (DEFINITY) IV ONE (07:13)
[2017-07-18 08:00] VITALS: O2SAT 96
[2017-07-18 08:17] VITALS: BP 118/79; PULSE 76; TEMP 36.8; O2SAT 97
[2017-07-18 08:39] LABS: HEMATOCRIT 39.5 % (37-47); HEMOGLOBIN 13.3 g/dL (12.0-16.0); MEAN CORPUSCULAR HEMOGLOBIN 29.3 pg (25-34); MEAN CORPUSCULAR HGB CONC 33.7 g/dl (32-36); MEAN PLATELET VOLUME 8.8 fL (7.4-10.4); PLATELET COUNT 484 K/uL (130-400); RED CELL DISTRIBUTION WIDTH CV 13.1 % (11.5-14.5); RED CELL DISTRIBUTION WIDTH SD 41.9 fL (36.4-46.3); WHITE BLOOD COUNT 7.45 K/uL (4.8-10.8)
[2017-07-18 08:56] LABS: PTT PATIENT 48.8 SECONDS (21.0-31.0)
[2017-07-18] MEDS ORDERED: AMLODIPINE BESYLATE 5 MG TAB PO SCH (09:00)
[2017-07-18] MEDS ORDERED: ESCITALOPRAM OXALATE 20 MG TAB PO SCH (09:00)
[2017-07-18] MEDS ORDERED: MULTIVITAMIN TAB PO SCH (09:00)
[2017-07-18] MEDS ORDERED: BusPIRone 15 MG TAB PO SCH (09:00)
[2017-07-18 09:14] LABS: BLOOD UREA NITROGEN 15 mg/dl (7-18); CALCIUM 8.5 mg/dl (8.5-10.1); CARBON DIOXIDE 24 mmol/L (21-32); CREATININE 0.71 mg/dl (0.60-1.20); GLUCOSE 116 mg/dl (70-99); POTASSIUM 3.8 mmol/L (3.5-5.1); SODIUM 141 mmol/L (136-145)
[2017-07-18 09:18] LABS: CKMB 1.6 ng/ml (0.5-3.6)
[2017-07-18 09:26] LABS: HEMOGLOBIN A1C 5.2 % (4.5-5.6)
--- NOTE | 2017-07-18 09:46 | ECHOCARDIOGRAM REPORT ---
*NOTICE TO RECEIVING CONSTITUTION PARTY AGENCY This information is strictly Confidential and protected under [place] law. [place] law prohibits you from making any further disclosure of this information unless further disclosure is expressly permitted by the written consent of the person to whom it pertains or is authorized by law. A general authorization for the release of medical or other information is not sufficient for this purpose. Hospital accepts no responsibility if the information is made available to any other person, INCLUDING THE PATIENT. Interpretation Summary * Name: LISA REID Study Date: 07/18/2017 06:51 AM BP: 137/84 mmHg * Patient Location: C.2T\S\S242\S\1 HR: 74 * : 1965 (M/d/yyyy) Gender: Female Height: 68 in * Age: 52 yrs Ethnicity: CA Weight: 279 lb * Ordering Physician: Maritza Abdul * Referring Physician: Amy Mariee * Performed By: Selam Arreguin RDCS * * Reason For Study: A-fib * BSA: 2.4 m2 * -- Conclusions -- * Left ventricular systolic function is normal. * Normal diastolic function Procedure Details * A complete two-dimensional transthoracic echocardiogram was performed (2D, M-mode, Doppler and color flow Doppler). * A contrast injection of Definity was performed to improve assessment of LV function. * Contrast was injected into an intravenous site in the left arm. * One vial of Definity ultrasound contrast was diluted in normal saline to a total volume of 10 ml. A total of '2' ml of solution was administered during imaging. * Lot # [id number] of Definity utilized for procedure. * Expiration date jun 21. * The attending nurse who injected the contrast agent was Aimee Wray RN. Left Ventricle * The left ventricle is normal in size. * There is normal left ventricular wall thickness. * Ejection Fraction = 55-60%. * Left ventricular systolic function is normal. * Normal diastolic function * The left ventricular wall motion is normal. Right Ventricle * The right ventricle is normal in size and function. * The right ventricular systolic function is normal as assessed by tricuspid annular plane systolic excursion (TAPSE) (normal >1.5 cm). Atria * The left atrial size is normal. * Right atrial size is normal. Mitral Valve * The mitral valve is grossly normal. * Significant mitral regurgitation is absent. Tricuspid Valve * The tricuspid valve is not well visualized, but is grossly normal. * Significant tricuspid regurgitation is absent. Aortic Valve * The aortic valve is not well visualized. * No hemodynamically significant valvular aortic stenosis. * There is no significant aortic regurgitation. Great Vessels * The aortic root is normal size. Pericardium/Pleural * There is no pericardial effusion. Great Vessels * Normal inferior vena cava diameter and respiratory variation suggests normal central venous pressure. MMode 2D Measurements and Calculations IVSd 0.83 cm LVIDd 4.6 cm LVIDs 3.2 cm LVPWd 1.0 cm IVS/LVPW 0.82 FS 31.0 % EDV(Teich) 96.9 ml ESV(Teich) 40.0 ml EF(Teich) 58.7 % EDV(cubed) 96.8 ml ESV(cubed) 31.9 ml EF(cubed) 67.1 % LV mass(C)d 141.4 grams LV mass(C)dI 60.0 grams/m\S\2 SV(Teich) 56.9 ml SI(Teich) 24.2 ml/m\S\2 SV(cubed) 64.9 ml SI(cubed) 27.6 ml/m\S\2 Ao root diam 3.0 cm Ao root area 7.2 cm\S\2 ACS 2.0 cm LA dimension 3.4 cm asc Aorta Diam 2.8 cm LA/Ao 1.1 LVOT diam 1.9 cm LVOT area 2.8 cm\S\2 LVAd ap4 32.7 cm\S\2 LVLd ap4 8.5 cm EDV(MOD-sp4) 102.6 ml EDV(sp4-el) 106.7 ml LVAs ap4 20.0 cm\S\2 LVLs ap4 7.2 cm ESV(MOD-sp4) 46.1 ml ESV(sp4-el) 47.3 ml EF(MOD-sp4) 55.1 % EF(sp4-el) 55.7 % LVAd ap2 34.7 cm\S\2 LVLd ap2 7.6 cm EDV(MOD-sp2) 123.6 ml EDV(sp2-el) 134.1 ml LVAs ap2 21.0 cm\S\2 LVLs ap2 6.6 cm ESV(MOD-sp2) 54.5 ml ESV(sp2-el) 57.0 ml EF(MOD-sp2) 55.9 % EF(sp2-el) 57.5 % LVLd %diff -11.76 % EDV(MOD-bp) 110.0 ml LVLs %diff -100 % ESV(MOD-bp) 50.8 ml EF(MOD-bp) 53.8 % SV(MOD-sp4) 56.5 ml SI(MOD-sp4) 24.0 ml/m\S\2 SV(MOD-sp2) 69.1 ml SI(MOD-sp2) 29.4 ml/m\S\2 SV(MOD-bp) 59.1 ml SI(MOD-bp) 25.1 ml/m\S\2 SV(sp4-el) 59.4 ml SI(sp4-el) 25.2 ml/m\S\2 SV(sp2-el) 77.1 ml SI(sp2-el) 32.7 ml/m\S\2 Doppler Measurements and Calculations MV E max art 92.6 cm/sec MV A max art 67.9 cm/sec MV E/A 1.4 MV dec time 0.24 sec Ao V2 max 135.7 cm/sec Ao max PG 7.4 mmHg Ao max PG (full) 3.0 mmHg SRINIVASA(V,A) 2.2 cm\S\2 SRINIVASA(V,D) 2.2 cm\S\2 LV V1 max PG 4.4 mmHg LV V1 max 104.3 cm/sec PA V2 max 92.3 cm/sec PA max PG 3.4 mmHg PA acc slope 325.1 cm/sec\S\2 PA acc time 0.18 sec PA pr(Accel) -0.22 mmHg
[2017-07-18] MEDS ORDERED: TPRSR50 PO (10:33)
--- NOTE | 2017-07-18 10:34 | Discharge Instructions ---
Discharge Instructions Date of Service Jul 18, 2017. Admission Reason for Admission: Atrial Fibrillation With Rvr Discharge Discharge Diagnosis / Problem: Atrial Fibrillation with Rapid Ventricular Rates Discharge Goals Goal(s): Decrease discomfort, Improve function, Increase independence Activity Recommendations Activity Limitations: resume your previous activity . Instructions / Follow-Up Instructions / Follow-Up Atrial Fibrillation: - This is when the top of your heart (atria) quiver or shake however the bottom of your heart (ventricles) continue to pump blood to the rest of your body. The main thing is to keep your heart rate under control when you go into this rhythm. At this time you have converted out of this rhythm and have a normal sinus rhythm. - This could have come on due to your recent infection. You electrolytes are within normal limits and your thyroid testing was normal. You echocardiogram did not show heart wall motion changes or signs of heart failure. - You were started on Toprol. This is a blood pressure medication but also helps control heart rate and also allows your heart to not have to work as hard to pump blood. -- Would recommend to stop your Amlodipine and just take the Toprol XL. - You were also started on Xarelto. This is a blood thinner to help prevent strokes in people with atrial fibrillation. -- You will take this just once a day -- While on a blood thinner you may bruise easily. If you have bleeding, apply firm pressure to the site for at least 5 minutes. If bleeding does not stop please seek help. Follow-Up: Dr. Mariee on Jul 25 at 10:00 am [facility] [place] Cardiology w/ Marium Armenta PA-C on SaturdayJul 30 at 3:00 pm Current Hospital Diet Patient's current hospital diet: AHA Diet (Heart Healthy) Discharge Diet Recommended Diet: AHA Diet (Heart Healthy) Pending Studies Studies pending at discharge: no Laboratory Results Hemoglobin A1c Test 07/18/17 08:20 Range/Units Estimated Average Glucose 103 mg/dl Hemoglobin A1c 5.2 4.5-5.6 % Lipid Panel Test 07/17/17 22:07 Range/Units Triglycerides Level 123 0-150 mg/dl Cholesterol Level 136 0-200 mg/dl HDL Cholesterol 41 mg/dl Cholesterol/HDL Ratio 3.3 LDL Cholesterol, Calculated 70 mg/dl Medical Emergencies . Who to Call and When: Medical Emergencies: If at any time you feel your situation is an emergency, please call 911 immediately. . Non-Emergent Contact Non-Emergency issues call your: Primary Care Provider Call Non-Emergent contact if: you have a fever, your pain is concerning you, you have any medication questions . . "Provider Documentation" section prepared by Mi Poon. . VTE Core Measure Inpt VTE Proph given/why not?: Other Anticoagulation (heparin drip), T.E.D. Stockings, SCD's
[2017-07-18 12:00] VITALS: BP 122/82; PULSE 72; TEMP 36.5; O2SAT 96; O2SAT 97
[2017-07-18] MEDS ORDERED: RIVAROXABAN 20 MG TAB PO ONE (12:57)
[2017-07-18] MEDS ORDERED: RIVA1TAB4 PO (12:59)
[2017-07-18 13:45] VITALS: BP 122/82; PULSE 72; TEMP 36.5; O2SAT 97
--- NOTE | 2017-07-18 16:48 | Discharge Summary ---
Discharge Summary Date of Service Jul 18, 2017. Discharge Summary Admission Date: Jul 17, 2017 at 19:04 Discharge Date: Jul 18, 2017 Discharge Disposition: Home Principal Diagnosis: New Onset Atrial Fibrillation with RVR Problems/Secondary Diagnoses: 1. HTN 2. Hypothyroidism 3. Anxiety/Depression 4. Mild Intermittent Asthma 5. BPPV Procedures: CHEST ONE VIEW PORTABLE FINDINGS: The bones soft tissues and hemidiaphragms are normal. The cardiomediastinal silhouette is normal. The lungs are clear. The pulmonary vasculature is normal. IMPRESSION: Negative chest. ECHOCARDIOGRAM - Left ventricular systolic function is normal. - Normal diastolic function Consultations: 1. Cardiology Medication Reconciliation New Medications: Rivaroxaban (Xarelto) 20 Mg Tab 20 MG PO DAILY for 30 Days, #30 TABS Metoprolol Succinate (Metoprolol Succinate ER) 50 Mg Tabcr 50 MG PO QAM for 30 Days, #30 TABS Continued Medications: Budesonide/Formoterol Fumarate (Symbicort 80/4.5 Inhaler) Unknown Strength Aero 2 PUFFS INH BID PRN for SOB/Wheezing, INHALER RINSE MOUTH AFTER USE Buspirone Hcl (Buspar) 15 Mg Tab 15 MG PO BID, TAB Escitalopram Oxalate (Lexapro) 20 Mg Tab 20 MG PO QAM, TAB Levothyroxine Sodium (Synthroid) 75 Mcg Tab 75 MCG PO QAM Lorazepam (Lorazepam) 0.5 Mg Tab 1 TAB PO BID PRN for Anxiety for 30 Days, #60 TAB Multivitamin (Multivitamin) Tab 1 TAB PO DAILY, TAB Discontinued Medications: Amlodipine Besylate (Norvasc) 10 Mg Tab 10 MG PO DAILY, TAB Discharge Exam Review of Systems: Constitutional: No fever, No chills, No weakness, No fatigue ENT: No nasal symptoms, No sore throat Respiratory: No cough, No shortness of breath Cardiovascular: No chest pain, No palpitations Abdomen: No pain, No nausea, No vomiting, No diarrhea, No constipation Musculoskeletal: No swelling, No calf pain Genitourinary - Female: No dysuria Hematologic / Lymphatic: No abnormal bleeding/bruising Integumentary: No rash Physical Exam: General Appearance: WD/WN, no apparent distress Eyes: sclerae normal ENT: hearing grossly normal Neck: supple, no JVD, trachea midline Respiratory/Chest: lungs clear, normal breath sounds, no respiratory distress, no accessory muscle use Cardiovascular: regular rate, rhythm, no gallop, no murmur Abdomen / GI: normal bowel sounds, non tender, soft Extremities: no pedal edema Neurologic/Psychiatric: alert, oriented x 3 Skin: normal color, warm/dry Hospital Course ADMISSION: This is a 52 y/o female with a history of HTN, hypothyroidism, anxiety/depression, mild intermittent asthma, and BPPV who presented to the ED on 07/17 with fatigue, lightheadedness and shortness of breath x 1 week. The patient states she felt her heart racing about 1 week ago. She does have a history of anxiety and notes also feeling anxious that day, so she believed this may have been related to an anxiety attack. Over the weekend, she felt much worse with increased fatigue, some shortness of breath and lightheadedness. She could tell that something was not right, so she went to her PCP. She was found to be in new onset of a-fib with RVR and sent to the ED for evaluation. The patient received diltiazem 30 mg bolus and drip and converted back to NSR. She reports now feeling much better. The patient denies fevers, chills, sweats, chest pain, claudication, cough, wheezing, nausea , vomiting, abdominal pain, dysuria, hematuria, urinary retention, paralysis, focal motor weakness, numbness and tingling. HOSPITAL COURSE: Ms. Valdez was admitted for new onset Atrial Fibrillation with RVR likely due to her recent URI/bronchitis. Electrolytes, TSH, cardiac enzymes , and echo are all unremarkable to explain a cause for this. Could benefit from outpatient sleep study to determine if underlying PAULO could be a factor? Regardless, patient was initially placed on Diltiazem gtt and quickly converted to NSR while in the ED. She has remained in NSR since admission. Her amlodipine was D/C'd and Toprol XL 50 mg daily was initiated to control rates if this could occur again. Pending BPs could consider re-introducing other BP agents but appears to have good control and would not want to cause hypotension. She was initiated on Xarelto. A co-pay card was activated to reduce her co-pay to $ 10 a month. She continues in NSR and is optimal for D/C with outpatient cardiology and PCP F/U. Total Time Spent: Greater than 30 minutes This includes examination of the patient, discharge planning, medication reconciliation, and communication with other providers. Discharge Instructions Please refer to the electronic Patient Visit Report (Discharge Instructions) for additional information. Additional Copies To Amy Mariee M.D.
--- NOTE | 2017-07-18 17:06 | CARDIOLOGY CONSULTATION ---
DATE OF CONSULTATION: 07/18/2017 TIME OF DICTATION: 16:24 p.m. CONSULTING PHYSICIAN: Franko. REASON FOR CONSULTATION: Atrial fibrillation with rapid ventricular response. HISTORY OF PRESENT ILLNESS: Mrs. Valdez is a very pleasant 52-year-old female with a history significant for hypertension. She was evaluated this morning at approximately 08:30 a.m. for atrial fibrillation as per the hospitalist request. For the past week, she has not been feeling well. She has felt exhausted and has noted dyspnea with exertion, positional lightheadedness, and intermittent palpitations that can last for several minutes at a time. Without the palpitations, she would feel much better. She went to her primary care office yesterday and was found to have a heart rate in the 140s and was diagnosed with atrial fibrillation. She was sent to the Emergency Department for further evaluation. Two weeks prior to her palpitations 1 week ago, she had flu-like symptoms with fever. She had recovered from this illness before experiencing the palpitations. She thought that her palpitations and overall not feeling well was related to a panic attack until atrial fibrillation was diagnosed. While at [facility], she was started on a diltiazem drip. She then spontaneously converted at approximately 16:52-16:53 p.m. yesterday. Now that she is in sinus rhythm, she feels much improved. She has felt an intermittent warmness across her chest and down her arms that can last a few moments. This is the symptom in the past that is correlated with anxiety. Recently because of this symptom, she had her medications changed with the addition of BuSpar. This has helped improve that symptom once again. REVIEW OF SYSTEMS: As above. Review of systems is otherwise negative/unremarkable. PAST MEDICAL HISTORY: 1. Hypertension. 2. Asthma. 3. Hypothyroidism. 4. Anxiety/depression. 5. Irritable bowel syndrome. HOME MEDICATIONS: Include amlodipine 10 mg daily, BuSpar 15 mg p.o. b.i.d., Lexapro 20 mg daily, levothyroxine 75 mcg daily, and multivitamin. ALLERGIES: INCLUDE AMOXICILLIN AND DICYCLOMINE. SOCIAL HISTORY: Quit smoking in 1993 after approximately 4 years of smoking less than a pack per day. No alcohol or drugs. She is and has 3 sons. Two sons have muscular dystrophy. She has 2 grandchildren with another grandchild on the way. 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 FAMILY HISTORY: Father has thoracic aortic aneurysm and developed severe aortic regurgitation. Paternal grandfather had aortic aneurysm. Three paternal cousins with aortic valve replacements in their 40s, suspicious for bicuspid aortic valve. One paternal cousin in his 20s from aortic rupture. Two sons with muscular dystrophy. PHYSICAL EXAMINATION: VITAL SIGNS: Temperature 36.8 degrees, heart rate 76 beats per minute, respiratory rate 24, blood pressure 118/79 mmHg, oxygen saturation is 97% on room air, and weight 127.4 kg. GENERAL: No acute distress. She is alert and oriented. HEENT: Anicteric sclerae. NECK: No appreciable JVD. No bruits. Normal carotid upstrokes bilaterally. CARDIAC EXAMINATION: PMI was nonpalpable. There was no ventricular heave. Regular, normal S1 and S2. There were no audible murmurs, rubs or gallops. LUNGS: Clear to auscultation bilaterally without wheezes, rales or rhonchi. ABDOMEN: Obese, soft, nontender, and nondistended. Normoactive bowel sounds. No bruits noted. EXTREMITIES: No cyanosis or pitting edema. 2+ radial pulses bilaterally. 2+ dorsalis pedis pulses bilaterally. No palpable cords. PSYCHIATRIC: Affect appears appropriate. Telemetry personally reviewed. Currently in sinus rhythm. ECGs personally reviewed. ECG on 07/17/2017 at 16:02 p.m. demonstrated atrial fibrillation with rapid ventricular response at 147 beats per minute. Nonspecific ST-T wave abnormality. ECG on 07/18/2017 at 06:21 a.m. demonstrated sinus rhythm at 71 beats per minute. Normal ECG. Chest x-ray reported as negative chest per radiology. Echocardiogram images were personally reviewed this morning. Normal LV systolic function. Normal wall motion. Normal left and right atrial size. No significant valvular abnormalities. LABORATORY DATA: Sodium 141, potassium 3.8, BUN 15, creatinine 0.71, and glucose 116. Troponin undetectable x3. LDL 70, HDL 41, and triglycerides 123. TSH 2.48. INR 1. White blood cell count 7.45. Hemoglobin 13.3 and platelets 484. ASSESSMENT AND PLAN: 1. Paroxysmal atrial fibrillation: We discussed the diagnosis with the help of a diagram. She has spontaneously converted. She was symptomatic. We discussed treatment strategies such as rate control, rhythm control and ablation. Recommend rate control for now. Recommend metoprolol for a total daily dose of 50 mg to start. We also discussed anticoagulation for stroke risk reduction. She has a CHADS2-VASc score of 2. She was agreeable for anticoagulation. She is agreeable for one of the newer agents. Please have care coordination find an affordable option for her. For repeat symptoms, she may need further adjustment of rate controlling medication and she was asked to call the office, but to call 911 for significant symptoms. 2. Hypertension: Blood pressure adequately controlled. Beta robert may be able to replace amlodipine for her blood pressure control. Monitor blood pressure to help adjust medications as appropriate. 3. Disposition: Recommend follow up in the outpatient cardiology office to reevaluate for symptoms and also heart rate after initiation of beta robert therapy. Cardiology office was personally contacted and they have arranged a followup appointment for her. The patient's care has been discussed with Dr. Guerrero Powell of the primary hospitalist service via telephone. Thank you for allowing me to participate in care of Mrs. Valdez. Sincerely,
[2017-07-19] MEDS ORDERED: RIVAROXABAN 20 MG TAB PO SCH (09:00)
[2017-07-19] MEDS ORDERED: METOPROLOL SUCC 50MG EXT REL TAB PO SCH (09:00)
== END 2017-07-18 14:10 | disposition home or self-care (01) ==
LOC: C.EDB 15:40 → C.2T 19:04 → ENRESERV 19:21
PROVIDERS: ADMIT Internal Medicine; ATTEND Internal Medicine
DX: I48.0 Paroxysmal atrial fibrillation (principal); I10 Essential (primary) hypertension; J45.909 Unspecified asthma, uncomplicated; E03.9 Hypothyroidism, unspecified; H81.10 Benign paroxysmal vertigo, unspecified ear; F32.9 Major depressive disorder, single episode, unspecified; K58.9 Irritable bowel syndrome, unspecified; Z87.891 Personal history of nicotine dependence; Z82.49 Family history of ischemic heart disease and other diseases of the circulatory system; Z82.5 Family history of asthma and other chronic lower respiratory diseases; Z80.42 Family history of malignant neoplasm of prostate

== ENCOUNTER → 2017-07-25 | Outpatient (CLI) | payer BC ==
[~2017-07-25] MED LIST changes: -AMLO-110 PO; +BUSP15TA70 PO; +LORA0.5T12 PO; +MULT-506 PO; +RIVA1TAB4 PO; +TPRSR50 PO
== END | disposition home or self-care (01) ==
LOC: C.LABMFLN 10:23
PROVIDERS: ATTEND Family Medicine
DX: E03.9 Hypothyroidism, unspecified (principal)